=== PATIENT | female | born 1995 | race Caucasian/White ===

== ENCOUNTER 2017-03-13 15:09 | Emergency (ER) | payer OTHER ==
[~2017-03-13] VITALS: Ht 154.9 cm; Wt 71.2 kg
[2017-03-13 15:40] VITALS: BP 144/74
--- NOTE | 2017-03-13 15:47 | NUR ---
PT TO LOBBY AWAITING ROOM, VSS
--- NOTE | 2017-03-13 16:50 | NUR ---
Note undone in EDM - 03/13/17 at 1659 by [email or web address] BIB SELF C/O MID BACK PAIN X TODAY; PT TODAY WAS WALKING DOWN THE STAIRS, SLIPPED, AND FELL DOWN THREE STAIRS; LANDED ON BACK; PT DENIES ANY LOC OR HITTING HEAD. PT REPORTS N/V 5 HOURS AGO. HX--HEART MURMUR.PATIENT PRESENTS TO ED WITH . PT STATES . DENIES N/V/D; AAOX4 WITH EVEN AND STEADY GAIT; LUNGS CLEAR BL; PT DENIES ANY FEVER, CP, SOB, OR COUGH AT THIS TIME; PATIENT STATES PAIN OF 4/10 AT THIS TIME; PATIENT POSITIONED FOR COMFORT; HOB ELEVATED; BEDRAILS UP X2; BED DOWN. ER MD MADE AWARE OF PT STATUS.
--- NOTE | 2017-03-13 16:50 | NUR ---
22/F BIB SELF C/O MID BACK PAIN S/P FALL. PT STATED WAS WALKING DOWN THE STAIRS, SLIPPED, AND FELL DOWN THREE STAIRS X YESTERDAY EVENING; LANDED ON BACK; PT DENIES ANY LOC OR HITTING HEAD. PT REPORTS N/V 5 HOURS AGO. HX--HEART MURMUR; NON TREATMENTPATIENT . AAOX4 WITH EVEN AND STEADY GAIT; LUNGS CLEAR BL; PATIENT STATES PAIN OF 4/10 AT THIS TIME; PATIENT POSITIONED FOR COMFORT; HOB ELEVATED; BEDRAILS UP X2; BED DOWN. ER MD MADE AWARE OF PT STATUS.
--- NOTE | 2017-03-13 17:13 | NUR ---
Patient being evaluated by REJI ELDRIDGE at bedside.
[2017-03-13] MEDS ORDERED: KETOROLAC 15 MG/ML VIAL IM ONE (17:15)
[2017-03-13] MEDS ORDERED: ONDANSETRON 4 MG ODT PO ONE (17:25)
--- NOTE | 2017-03-13 17:46 | NUR ---
PT BACK FROM X RAY VIA W/C, ACCOMPANIED BY PERSONAL SERVICE REPRESENTATIVE.
--- NOTE | 2017-03-13 18:10 | NUR ---
FAMILY AT BEDSIDE.
[2017-03-13 18:29] VITALS: BP 115/64
--- NOTE | 2017-03-13 18:29 | NUR ---
Patient discharged with v/s stable. Written and verbal after care instructions given and explained. Patient alert, oriented and verbalized understanding of instructions. Ambulatory with steady gait. All questions addressed prior to discharge. ID band removed. Patient advised to follow up with PMD. Rx of ZOFRAN, FLEXERIL& IBUPROFEN given. Patient educated on indication of medication including possible reaction and side effects. Opportunity to ask questions provided and answered.
== END 2017-03-13 18:29 | disposition home or self-care (01) ==
LOC: MED 15:09
DX: S39.012A Strain of muscle, fascia and tendon of lower back, initial encounter (principal); W10.9XXA Fall (on) (from) unspecified stairs and steps, initial encounter; Y93.89 Activity, other specified; Y92.89 Other specified places as the place of occurrence of the external cause; Y99.8 Other external cause status
CPT/HCPCS: 72100; 81025; 96372; 99284; J1885; S0119